=== PATIENT | male | born 2005 | race Caucasian/White ===

== ENCOUNTER 2025-10-21 17:21 | Emergency (ER) | payer OTHER ==
[~2025-10-21] VITALS: Ht 172.7 cm; Wt 86.2 kg
[2025-10-21] MEDS ORDERED: CETI10CH PO (18:36)
[2025-10-21 18:42] VITALS: BP 136/84; TEMP 96.7; O2SAT 97
== END 2025-10-21 18:43 | disposition home or self-care (01) ==
LOC: M ED 17:21
DX: J02.9 Acute pharyngitis, unspecified (principal); H65.03 Acute serous otitis media, bilateral; Z79.899 Other long term (current) drug therapy